=== PATIENT | male | born 1955 | race Hispanic/Latino ===

== ENCOUNTER 2023-06-18 08:28 | Inpatient (IN) | payer MEDICARE ==
[~2023-06-18] VITALS: Ht 172.7 cm; Wt 104.3 kg
[2023-06-18] MEDS: ONDANSETRON HCL INJ 2MG/ML 2ML 2 MG/ML VIAL IV STA (09:19)
[2023-06-18] MEDS: DICYCLOMINE HCL 20 MG/2 ML VIAL IM ONE (09:19)
[2023-06-18] MEDS: SODIUM CHLORIDE 0.9% 1000ML 1,000 ML IV SCH ×2 (09:19→12:02)
[2023-06-18 09:25] LABS: BASOPHILS % 0.1 % (0.0-1.0); HEMATOCRIT 45.6 % (38.2-49.6); HEMOGLOBIN 16.5 g/dL (14.0-18.0); LYMPHOCYTES # (AUTO) 0.9 (1.0-3.2); MEAN CORPUSCULAR HEMOGLOBIN 31.3 pg (28-32); MEAN CORPUSCULAR HGB CONC 36.2 g/dL (31-35); MEAN CORPUSCULAR VOLUME 86.5 fL (81-99); MONOCYTES # (AUTO) 0.7 (0.2-0.8); MONOCYTES % 4.7 % (4.4-11.3); NEUTROPHILS # (AUTO) 13.9 (2.1-6.9); NEUTROPHILS % 88.9 % (38.7-80.0); PLATELET COUNT 200 x10e3/uL (140-360); RED BLOOD COUNT 5.27 x10e6/uL (4.3-5.7); RED CELL DISTRIBUTION WIDTH 11.6 % (11.7-14.4); WHITE BLOOD COUNT 15.64 x10e3/uL (4.8-10.8)
[2023-06-18 09:44] LABS: ALANINE AMINOTRANSFERASE 64 IU/L (0-55); BILIRUBIN,TOTAL 1.8 mg/dL (0.2-1.2); BLOOD UREA NITROGEN 29 mg/dL (7-26); BUN/CREATININE RATIO 27 (6-25); CALCIUM 9.8 mg/dL (8.4-10.2); CARBON DIOXIDE 21 mmol/L (22-29); CHLORIDE 97 mmol/L (98-107); CREATININE, SERUM 1.09 mg/dL (0.72-1.25); EST GLOMERULAR FILTRATION RATE 74 ML/MIN (>=60); GLUCOSE 341 mg/dL (74-118); LIPASE 610 U/L (8-78); SODIUM 135 mmol/L (136-145); TOTAL PROTEIN 7.9 g/dL (6.5-8.1)
[2023-06-18 09:51] LABS: TROPONIN I < 0.001 ng/mL (0-0.300)
[2023-06-18 09:56] LABS: ALKALINE PHOSPHATASE 90 IU/L (40-150)
[2023-06-18] MEDS ORDERED: FENTANYL CITRATE/PF 100MCG/2 ML INJ IV PRN (10:00)
[2023-06-18] MEDS ORDERED: IOPAMIDOL 370 MG/ML 100 ML INFUS..BTL INJ ONE (10:08)
[2023-06-18] MEDS ORDERED: ONDANSETRON HCL INJ 2MG/ML 2ML 2 MG/ML VIAL IV PRN (11:00)
[2023-06-18] MEDS: LACTATED RINGER'S 1,000 ML INJ ONE (11:37)
[2023-06-18] MEDS: CEFTRIAXONE 2 GM in SODIUM CHLORIDE 0.9% 100 ML IV SCH (11:38)
[2023-06-18] MEDS: INSULIN REGULAR, HUMAN 100 UNIT/1 ML IV ONE (11:41)
[2023-06-18] MEDS: METRONIDAZOLE 750MG/NS 150ML 150 ML IV SCH (12:50)
[2023-06-18 16:00] VITALS: BP 133/80; PULSE 94; RESP 18; TEMP 98.3; O2SAT 99
[2023-06-18 16:03] VITALS: BP 133/80; PULSE 94; RESP 18; TEMP 98.3; O2SAT 99
[2023-06-18] MEDS: Morphine 4mg INJECTION 4 MG/ML INJ IV PRN (16:26)
[2023-06-18 20:00] VITALS: BP 139/84; PULSE 98; RESP 18; TEMP 99.3; O2SAT 97
[2023-06-18 20:40] VITALS: PULSE 93; RESP 18; O2SAT 92
[2023-06-19] VITALS (8 sets, daily range): BP systolic 126–146; BP diastolic 75–90; PULSE 85–99; RESP 16–18; TEMP 98–100; O2SAT 93–97
[2023-06-19 05:47] LABS: BASOPHILS % 0.1 % (0.0-1.0); EOSINOPHILS % 0.1 % (0.0-6.0); HEMATOCRIT 41.4 % (38.2-49.6); HEMOGLOBIN 14.6 g/dL (14.0-18.0); LYMPHOCYTES # (AUTO) 1.4 (1.0-3.2); LYMPHOCYTES % 7.9 % (18.0-39.1); MEAN CORPUSCULAR HEMOGLOBIN 30.8 pg (28-32); MEAN CORPUSCULAR HGB CONC 35.3 g/dL (31-35); MEAN CORPUSCULAR VOLUME 87.3 fL (81-99); MONOCYTES % 5.6 % (4.4-11.3); NEUTROPHILS # (AUTO) 15.5 (2.1-6.9); NEUTROPHILS % 85.7 % (38.7-80.0); PLATELET COUNT 175 x10e3/uL (140-360); RED BLOOD COUNT 4.74 x10e6/uL (4.3-5.7); RED CELL DISTRIBUTION WIDTH 11.5 % (11.7-14.4); WHITE BLOOD COUNT 18.13 x10e3/uL (4.8-10.8)
[2023-06-19 06:16] LABS: ALBUMIN 3.3 g/dL (3.5-5.0); ALBUMIN/GLOBULIN RATIO 0.9 (0.8-2.0); ANION GAP 15.8 mmol/L (8-16); BILIRUBIN,TOTAL 1.4 mg/dL (0.2-1.2); CALCIUM 8.8 mg/dL (8.4-10.2); CREATININE, SERUM 0.77 mg/dL (0.72-1.25); POTASSIUM 3.8 mmol/L (3.5-5.1); TOTAL PROTEIN 6.8 g/dL (6.5-8.1)
[2023-06-19] MEDS ORDERED: GADOBENATE DIMEGLUMINE 1 ML IV ONE (09:37)
[2023-06-20] VITALS (7 sets, daily range): BP systolic 125–152; BP diastolic 70–96; PULSE 76–87; RESP 16–20; TEMP 97.4–100.7; O2SAT 95–98
[2023-06-20 05:46] LABS: BASOPHILS % 0.2 % (0.0-1.0); EOSINOPHILS % 0.1 % (0.0-6.0); HEMATOCRIT 37.5 % (38.2-49.6); HEMOGLOBIN 12.8 g/dL (14.0-18.0); LYMPHOCYTES # (AUTO) 1.6 (1.0-3.2); LYMPHOCYTES % 11.5 % (18.0-39.1); MEAN CORPUSCULAR HEMOGLOBIN 30.4 pg (28-32); MEAN CORPUSCULAR HGB CONC 34.1 g/dL (31-35); MEAN CORPUSCULAR VOLUME 89.1 fL (81-99); MONOCYTES # (AUTO) 0.9 (0.2-0.8); MONOCYTES % 6.1 % (4.4-11.3); NEUTROPHILS # (AUTO) 11.3 (2.1-6.9); PLATELET COUNT 149 x10e3/uL (140-360); RED BLOOD COUNT 4.21 x10e6/uL (4.3-5.7); RED CELL DISTRIBUTION WIDTH 11.4 % (11.7-14.4); WHITE BLOOD COUNT 13.99 x10e3/uL (4.8-10.8)
[2023-06-20 06:20] LABS: ALBUMIN 2.7 g/dL (3.5-5.0); ALBUMIN/GLOBULIN RATIO 0.8 (0.8-2.0); ANION GAP 13.4 mmol/L (8-16); BILIRUBIN,TOTAL 1.5 mg/dL (0.2-1.2); CALCIUM 8.2 mg/dL (8.4-10.2); CREATININE, SERUM 0.65 mg/dL (0.72-1.25); TOTAL PROTEIN 5.9 g/dL (6.5-8.1)
[2023-06-20 06:27] LABS: POTASSIUM 3.4 mmol/L (3.5-5.1)
[2023-06-20] MEDS ORDERED: DEXTROSE 50% SYRINGE 50 ML IV PRN (09:00)
[2023-06-20] MEDS: KCL 20MEQ/.9 SOD CHL 1,000 ML IV SCH ×2 (11:17→23:30)
[2023-06-20] MEDS: INSULIN LISPRO 100 UNIT/1 ML 3ML VIAL SQ SCH (12:16)
[2023-06-20] MEDS: ACETAMINOPHEN 325 MG/10 ML UDC PO PRN (17:46)
[2023-06-20] MEDS ORDERED: ACETAMINOPHEN 325 MG/10 ML UDC ONE (17:48)
[2023-06-20] MEDS: INSULIN GLARGINE 100 UNITS/ML VIAL SQ SCH (22:32)
[2023-06-20] MEDS ORDERED: KCL 20MEQ/.9 SOD CHL 1,000 ML IV ONE (23:23)
[2023-06-20] MEDS ORDERED: SODIUM CHLORIDE 0.9% 100 ML ONE (23:28)
[2023-06-20] MEDS ORDERED: ONDANSETRON HCL INJ 2MG/ML 2ML 2 MG/ML VIAL ONE (23:29)
[2023-06-21] VITALS (8 sets, daily range): BP systolic 120–147; BP diastolic 69–94; PULSE 68–88; RESP 17–20; TEMP 98.1–100.4; O2SAT 94–98
[2023-06-21 07:11] LABS: BASOPHILS % 0.2 % (0.0-1.0); EOSINOPHILS # (AUTO) 0.1 (0.0-0.4); EOSINOPHILS % 0.9 % (0.0-6.0); HEMATOCRIT 35.8 % (38.2-49.6); HEMOGLOBIN 12.3 g/dL (14.0-18.0); LYMPHOCYTES # (AUTO) 1.8 (1.0-3.2); LYMPHOCYTES % 15.4 % (18.0-39.1); MEAN CORPUSCULAR HEMOGLOBIN 30.1 pg (28-32); MEAN CORPUSCULAR HGB CONC 34.4 g/dL (31-35); MEAN CORPUSCULAR VOLUME 87.7 fL (81-99); MONOCYTES # (AUTO) 0.7 (0.2-0.8); NEUTROPHILS # (AUTO) 8.7 (2.1-6.9); NEUTROPHILS % 76.4 % (38.7-80.0); PLATELET COUNT 144 x10e3/uL (140-360); RED BLOOD COUNT 4.08 x10e6/uL (4.3-5.7); RED CELL DISTRIBUTION WIDTH 11.2 % (11.7-14.4); WHITE BLOOD COUNT 11.35 x10e3/uL (4.8-10.8)
[2023-06-21 07:52] LABS: ALBUMIN 2.7 g/dL (3.5-5.0); ALBUMIN/GLOBULIN RATIO 0.8 (0.8-2.0); ANION GAP 14.3 mmol/L (8-16); BILIRUBIN,TOTAL 1.4 mg/dL (0.2-1.2); CALCIUM 8.3 mg/dL (8.4-10.2); CREATININE, SERUM 0.59 mg/dL (0.72-1.25); MAGNESIUM 1.8 MG/DL (1.3-2.1); PHOSPHORUS 1.8 MG/DL (2.3-4.7); TOTAL PROTEIN 5.9 g/dL (6.5-8.1)
[2023-06-21 07:53] LABS: POTASSIUM 3.3 mmol/L (3.5-5.1)
[2023-06-21] MEDS ORDERED: INSULIN LISPRO 100 UNIT/1 ML 3ML VIAL SQ ONE (08:51)
[2023-06-21] MEDS ORDERED: PIPERACILLIN/TAZOBACTAM 3.375 GM VIAL ONE (08:53)
[2023-06-21] MEDS ORDERED: KCL 20MEQ/.9 SOD CHL 1,000 ML IV ONE ×2 (11:10→21:22)
[2023-06-21] MEDS ORDERED: POTASSIUM CHLORIDE 10MEQ EA ONE (11:56)
[2023-06-21] MEDS ORDERED: Morphine 4mg INJECTION 4 MG/ML INJ ONE (11:57)
[2023-06-21] MEDS: POTASSIUM CHLORIDE 10MEQ EA PO ONE (11:58)
[2023-06-21] MEDS ORDERED: PANTOPRAZOLE SOD 40 MG TABEC ONE (15:33)
[2023-06-21] MEDS ORDERED: INSULIN GLARGINE 100 UNITS/ML VIAL ONE (20:41)
[2023-06-22] VITALS (8 sets, daily range): BP systolic 132–157; BP diastolic 78–93; PULSE 74–85; RESP 18–20; TEMP 98.3–99; O2SAT 96–100
[2023-06-22 08:08] LABS: BASOPHILS % 0.2 % (0.0-1.0); EOSINOPHILS # (AUTO) 0.2 (0.0-0.4); EOSINOPHILS % 1.6 % (0.0-6.0); HEMATOCRIT 35.4 % (38.2-49.6); HEMOGLOBIN 12.9 g/dL (14.0-18.0); LYMPHOCYTES # (AUTO) 1.9 (1.0-3.2); MEAN CORPUSCULAR HGB CONC 36.4 g/dL (31-35); MEAN CORPUSCULAR VOLUME 85.1 fL (81-99); MONOCYTES # (AUTO) 0.8 (0.2-0.8); MONOCYTES % 6.3 % (4.4-11.3); NEUTROPHILS # (AUTO) 9.4 (2.1-6.9); NEUTROPHILS % 75.8 % (38.7-80.0); PLATELET COUNT 174 x10e3/uL (140-360); RED BLOOD COUNT 4.16 x10e6/uL (4.3-5.7); RED CELL DISTRIBUTION WIDTH 11.2 % (11.7-14.4); WHITE BLOOD COUNT 12.41 x10e3/uL (4.8-10.8)
[2023-06-22 08:44] LABS: ALBUMIN 2.7 g/dL (3.5-5.0); ALBUMIN/GLOBULIN RATIO 0.8 (0.8-2.0); ANION GAP 13.5 mmol/L (8-16); BILIRUBIN,TOTAL 1.1 mg/dL (0.2-1.2); CALCIUM 8.4 mg/dL (8.4-10.2); CREATININE, SERUM 0.61 mg/dL (0.72-1.25); POTASSIUM 3.5 mmol/L (3.5-5.1); TOTAL PROTEIN 6.2 g/dL (6.5-8.1)
[2023-06-22] MEDS ORDERED: KCL 20MEQ/.9 SOD CHL 1,000 ML IV ONE (13:53)
[2023-06-22] MEDS ORDERED: ACETAMINOPHEN 325 MG/10 ML UDC ONE ×2 (22:25→22:32)
[2023-06-23] VITALS: BP 125/84; PULSE 65; RESP 17; TEMP 97.8; O2SAT 98
[2023-06-23 04:00] VITALS: BP 143/89; PULSE 69; RESP 18; TEMP 98.1; O2SAT 98
[2023-06-23 05:46] LABS: BASOPHILS % 0.3 % (0.0-1.0); EOSINOPHILS # (AUTO) 0.2 (0.0-0.4); EOSINOPHILS % 1.8 % (0.0-6.0); HEMATOCRIT 35.5 % (38.2-49.6); HEMOGLOBIN 12.6 g/dL (14.0-18.0); LYMPHOCYTES # (AUTO) 2.1 (1.0-3.2); LYMPHOCYTES % 18.8 % (18.0-39.1); MEAN CORPUSCULAR HEMOGLOBIN 31.1 pg (28-32); MEAN CORPUSCULAR HGB CONC 35.5 g/dL (31-35); MEAN CORPUSCULAR VOLUME 87.7 fL (81-99); MONOCYTES # (AUTO) 0.8 (0.2-0.8); NEUTROPHILS # (AUTO) 7.8 (2.1-6.9); NEUTROPHILS % 70.8 % (38.7-80.0); PLATELET COUNT 122 x10e3/uL (140-360); RED BLOOD COUNT 4.05 x10e6/uL (4.3-5.7); RED CELL DISTRIBUTION WIDTH 11.4 % (11.7-14.4); WHITE BLOOD COUNT 10.93 x10e3/uL (4.8-10.8)
[2023-06-23 06:28] LABS: ANION GAP 15.9 mmol/L (8-16); CALCIUM 8.2 mg/dL (8.4-10.2); CREATININE, SERUM 0.64 mg/dL (0.72-1.25); POTASSIUM 3.9 mmol/L (3.5-5.1)
[2023-06-23 08:50] VITALS: BP 130/78; PULSE 73; RESP 20; TEMP 97.9; O2SAT 99
[2023-06-23] MEDS ORDERED: PIPERACILLIN/TAZOBACTAM 3.375 GM VIAL ONE (08:53)
[2023-06-23] MEDS ORDERED: Sodium Chloride 0.9% 50ML Bag ONE (08:53)
[2023-06-23] MEDS ORDERED: ACETAMINOPHEN 325 MG/10 ML UDC ONE (08:53)
[2023-06-23] MEDS ORDERED: SOD CHL 0.9% IV ONE (08:53)
[2023-06-23] MEDS ORDERED: KCL 20 MEQ IV ONE (08:53)
[2023-06-23 09:00] VITALS: BP 130/78; PULSE 73; RESP 20; TEMP 97.9; O2SAT 99
[2023-06-23] MEDS ORDERED: KCL 20MEQ/.9 SOD CHL 1,000 ML IV ONE (09:19)
== END 2023-06-23 11:00 | disposition home or self-care (01) | DRG 440 ==
LOC: ER 08:35 → ERHOLD 11:03 → MED/SURG 15:10 → MED/SURG2 18:53
PROVIDERS: ADMIT Internal Medicine; ATTEND Internal Medicine
DX: K85.90 Acute pancreatitis without necrosis or infection, unspecified (principal); E11.65 Type 2 diabetes mellitus with hyperglycemia; K52.9 Noninfective gastroenteritis and colitis, unspecified; K29.80 Duodenitis without bleeding; E86.0 Dehydration; Z11.52 Encounter for screening for COVID-19
CPT/HCPCS: 36415; 71045; 74177; 74183; 80048; 80053; 82948; 83036; 83605; 83690; 83735; 84100; 84484; 85025; 87040; 93005; 94799; 99284; J0696; J1815; J2270; J2405; J2543; J7030; J7050; Q9967; U0002